=== PATIENT | female | born 1980 | race American Indian/Alaskan Native ===

== ENCOUNTER 2019-02-25 09:59 | Emergency (ER) | payer SELFPAY ==
[2019-02-25] MEDS ORDERED: NACL 0.9% 1000 ML 1,000 ML IV ONE (11:37)
[2019-02-25] MEDS ORDERED: BENADRYL IV ONE (11:37)
[2019-02-25] MEDS ORDERED: REGLAN IV ONE ×2 (11:37→14:40)
[2019-02-25 11:38] LABS: BUN/Creatinine Ratio 25; Blood Urea Nitrogen 15 mg/dL (7-17); Hemolysis Index 18
[2019-02-25 11:40] LABS: Basophils # (Auto) 0.1 K/mm3 (0.0-0.1); Eosinophils # (Auto) 0.1 K/mm3 (0.0-0.4); Eosinophils % (Auto) 1.4 % (0.0-4.3); Hematocrit 33.8 % (30.3-42.9); Hemoglobin 11.1 gm/dl (10.1-14.3); Lymphocytes % (Auto) 32.4 % (13.4-35.0); Mean Corpuscular HGB Conc 33 % (30-34); Mean Corpuscular Hemoglobin 28 pg (28-32); Mean Corpuscular Volume 86 fl (79-97); Monocytes # (Auto) 0.5 K/mm3 (0.0-0.8); Platelet Count 289 K/mm3 (140-440); Red Blood Count 3.92 M/mm3 (3.65-5.03); Red Cell Distribution Width 13.2 % (13.2-15.2)
[2019-02-25] MEDS ORDERED: BENADRYL ONE (11:42)
--- NOTE | 2019-02-25 12:25 | Emergency Department Report ---
Vomiting/Diarrhea - HPI Chief Complaint: Abdominal Pain Stated Complaint: ULCER STOMACH PAIN Time Seen by Provider: 02/25/19 11:14 Duration: 1 Day Severity: moderate Nausea/Vomiting Severity: Mild Diarrhea Severity: None Pain Location: Epigastric Pain Severity: Mild Symptoms: Yes Recent Unusual Foods (alcohol, 2 mixed drinks last night), No Watery Diarrhea, No Bloody diarrhea, No Fever, No Able to Tolerate Fluids, No Recent Untreated Water, No Recent use of Antibiotics, No Family w/ Similar Symptoms, No Contacts w/ Similar Symptoms, No Rash, No Hematuria, No Recent URI Symptoms Other History: This is a 39-year-old female with a history of ulcer related gastritis who presents to ED complaining of nausea and vomiting that started this morning. Patient was also celebrated her birthday yesterday and had a couple of alcoholic beverages which started on this case of vomiting. She had bandage was used to W pain nonradiating just burning sensation. ED Review of Systems ROS: Stated complaint: ULCER STOMACH PAIN Other details as noted in HPI Comment: All other systems reviewed and negative ED Past Medical Hx - Social History Smoking Status: Never Smoker Substance Use Type: Alcohol - Medications Home Medications: Home Medications Medication Instructions Recorded Confirmed Last Taken Type Dicyclomine [Bentyl] 10 mg PO TID #20 capsule 02/25/19 Unknown Rx Famotidine [Pepcid] 20 mg PO BID #20 tablet 02/25/19 Unknown Rx Metoclopramide [Reglan] 10 mg PO TID #20 tab 02/25/19 Unknown Rx Vomiting Diarrhea Exam - Exam General: Vital signs noted. No distress. Alert and acting appropriately. HEENT: Yes Moist Mucous Membranes, No Pharyngeal Erythema, No Pharyngeal Exudates, No Rhinorrhea, No Conjuctival Injection, No Frontal Tenderness, No Maxillary Tenderness Neck: No Adenopathy, No Rigidity Lungs: Yes Clear Lung Sounds, Yes Good Air Exchange, No Wheezes, No Stridor, No Cough, No Nasal Flaring, No Retractions, No Use of Accessory Muscles Heart exam: Regular: Yes, Murmur: No, Tachycardia: No Abdomen: Tenderness: No, Peritoneal Signs: No, Distention: No, Hyperactive Bowel sounds: No Skin exam: Rash: No, Edema: No, Normal turgor: Yes Neurologic: Alert and oriented, no deficits. Musculoskeletal: Unremarkable. ED Course Vital Signs 02/25/19 10:14 Temperature 97.8 F Pulse Rate 70 Respiratory 16 Rate Blood Pressure 126/81 O2 Sat by Pulse 100 Oximetry - Reevaluation(s) Reevaluation #1: Patient feeling much better after administration of 1 L fluids, Reglan and Benadryl in the ED. She is resting comfortably on the ED bed. 02/25/19 12:25 ED Medical Decision Making - Lab Data Result diagrams: 02/25/19 10:41 02/25/19 10:41 Laboratory Last Values WBC 6.0 K/mm3 (4.5-11.0) 02/25/19 10:41 RBC 3.92 M/mm3 (3.65-5.03) 02/25/19 10:41 Hgb 11.1 gm/dl (10.1-14.3) 02/25/19 10:41 Hct 33.8 % (30.3-42.9) 02/25/19 10:41 MCV 86 fl (79-97) 02/25/19 10:41 MCH 28 pg (28-32) 02/25/19 10:41 MCHC 33 % (30-34) 02/25/19 10:41 RDW 13.2 % (13.2-15.2) 02/25/19 10:41 Plt Count 289 K/mm3 (140-440) 02/25/19 10:41 Lymph % (Auto) 32.4 % (13.4-35.0) 02/25/19 10:41 Person % (Auto) 8.0 % (0.0-7.3) H 02/25/19 10:41 Eos % (Auto) 1.4 % (0.0-4.3) 02/25/19 10:41 Baso % (Auto) 1.0 % (0.0-1.8) 02/25/19 10:41 Lymph # 2.0 K/mm3 (1.2-5.4) 02/25/19 10:41 Person # 0.5 K/mm3 (0.0-0.8) 02/25/19 10:41 Eos # 0.1 K/mm3 (0.0-0.4) 02/25/19 10:41 Baso # 0.1 K/mm3 (0.0-0.1) 02/25/19 10:41 Seg Neutrophils % 57.2 % (40.0-70.0) 02/25/19 10:41 Seg Neutrophils # 3.4 K/mm3 (1.8-7.7) 02/25/19 10:41 Sodium 142 mmol/L (137-145) 02/25/19 10:41 Potassium 3.3 mmol/L (3.6-5.0) L 02/25/19 10:41 Chloride 104.1 mmol/L (98-107) 02/25/19 10:41 Carbon Dioxide 18 mmol/L (22-30) L 02/25/19 10:41 23 mmol/L 02/25/19 10:41 BUN 15 mg/dL (7-17) 02/25/19 10:41 0.6 mg/dL (0.7-1.2) L 02/25/19 10:41 Estimated GFR > 60 ml/min 02/25/19 10:41 25 % 02/25/19 10:41 Glucose 115 mg/dL (65-100) H 02/25/19 10:41 Calcium 9.0 mg/dL (8.4-10.2) 02/25/19 10:41 Yellow (Yellow) 02/25/19 12:40 Slightly-cloudy (Clear) 02/25/19 12:40 5.0 (5.0-7.0) 02/25/19 12:40 Ur Specific [place] 1.023 (1.003-1.030) 02/25/19 12:40 30 mg/dl mg/dL (Negative) 02/25/19 12:40 Neg mg/dL (Negative) 02/25/19 12:40 20 mg/dL (Negative) 02/25/19 12:40 Neg (Negative) 02/25/19 12:40 Neg (Negative) 02/25/19 12:40 Neg (Negative) 02/25/19 12:40 < 2.0 mg/dL (<2.0) 02/25/19 12:40 Ur Leukocyte Esterase Neg (Negative) 02/25/19 12:40 1.0 /HPF (0.0-6.0) 02/25/19 12:40 3.0 /HPF (0.0-6.0) 02/25/19 12:40 U Epithel Cells (Auto) 2.0 /HPF (0-13.0) 02/25/19 12:40 Hyaline Casts 1 /LPF 02/25/19 12:40 Few /HPF 02/25/19 12:40 Urine HCG, Qual Negative (Negative) 02/25/19 12:40 - Medical Decision Making 39-year-old female presents with a colic gastritis. Patient received 1 L of normal saline and Reglan and Benadryl IV in ED. Patient also received Protonix Pepcid and morphine in the ED for pain. CBC, CMP, urinalysis is obtained. Vital signs are normal patient with no acute distress. His constipation issue and need to keep hydration increase Discussed follow-up with primary care physician as well as a manager dish. Patient will be sent home on Reglan, Benadryl and Pepcid for symptoms. Patient has no evidence of leukocytosis or infective gastritis. Critical care attestation.: If time is entered above; I have spent that time in minutes in the direct care of this critically ill patient, excluding procedure time. ED Disposition Clinical Impression: Alcohol-induced gastric ulcer, Gastritis, alcoholic Disposition: DC-01 TO HOME OR SELFCARE Is pt being admited?: No Does the pt Need Aspirin: No Condition: Stable Instructions: Gastritis (ED), Diet for Ulcers and Gastritis (ED), Abdominal Pain (ED) Additional Instructions: Make sure to follow up with the primary care physician as discussed. Take all your medications as you've been prescribed. If you have any worsening symptoms or develop new symptoms please return to ED immediately. Prescriptions: Dicyclomine [Bentyl] 10 mg PO TID #20 capsule Famotidine [Pepcid] 20 mg PO BID #20 tablet Metoclopramide [Reglan] 10 mg PO TID #20 tab Referrals: FIDEL BARTLETT MD [Primary Care Provider] - 3-5 Days [facility] [Provider Group] - 3-5 Days [facility] [Outside] - 3-5 Days [facility] [Outside] - 3-5 Days Forms: Accompanied Note, Work/School Release Form(ED) Time of Disposition: 14:55
[2019-02-25] MEDS: PEPCID IV ONE ×2 (12:46→15:47)
[2019-02-25] MEDS ORDERED: PROTONIX IV ONE (12:50)
[2019-02-25] MEDS ORDERED: PEPCID IV ONE (12:53)
[2019-02-25 13:02] LABS: Bilirubin,Urine NEG (Negative); Blood,Urine NEG (Negative); Color,Urine Yellow (Yellow); Hyaline Casts,Urine 1 /LPF; Mucus,Urine FEW /HPF; Urobilinogen,Urine < 2.0 mg/dL (<2.0)
[2019-02-25 13:07] LABS: HCG Qualitative,Urine Negative (Negative)
[2019-02-25] MEDS ORDERED: MORPHINE IV ONE (15:13)
[2019-02-25] MEDS ORDERED: NACL 0.9% 500 ML 500 ML IV ONE (15:30)
[2019-02-25] MEDS ORDERED: NACL 0.9% 500 ML 500 ML ONE (15:31)
[2019-02-25 16:07] VITALS: BP 134/67
== END 2019-02-25 16:54 | disposition home or self-care (01) ==
LOC: ED 09:59
DX: K29.20 Alcoholic gastritis without bleeding (principal)
CPT/HCPCS: 36415; 80048; 81001; 81025; 85025; 96361; 96374; 96375; 96376; 99283; C9113; J1200; J2270; J2765; J7030; J7040